=== PATIENT | male | born 2000 | race Caucasian/White ===

== ENCOUNTER 2022-06-19 11:03 | Emergency (ER) | payer MEDICARE, MEDICAID ==
[~2022-06-19] VITALS: Ht 188 cm; Wt 158.0 kg
[2022-06-19 11:43] VITALS: BP 117/80
[2022-06-19] MEDS ORDERED: MUPI1OIN4 TP (12:40)
== END 2022-06-19 13:24 | disposition home or self-care (01) ==
LOC: ER 11:03
DX: Z48.00 Encounter for change or removal of nonsurgical wound dressing (principal); Z88.0 Allergy status to penicillin; Z98.890 Other specified postprocedural states
CPT/HCPCS: 99281; 99283